=== PATIENT | male | born 1985 | race Caucasian/White ===

== ENCOUNTER 2017-07-01 02:15 | Inpatient (IN) | payer SELFPAY ==
[2017-07-01] VITALS (7 sets, daily range): BP systolic 120–140; BP diastolic 69–88; PULSE 66–90; RESP 16–22; TEMP 97.6–98.8; O2SAT 97–98
[~2017-07-01] VITALS: Ht 172.7 cm; Wt 68.0 kg
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
[2017-07-01 03:21] LABS: HEMATOCRIT 38.8 % (39.0-51.0); MEAN CELL VOLUME 87.3 FL (80.0-100.0); MEAN CORPUSCULAR HEMOGLOBIN 29.6 PG (27.0-34.0); MEAN CORPUSCULAR HGB CONC 33.9 % (32.0-36.0); PLATELET COUNT 229 TH/MM3 (150-450); RED BLOOD COUNT 4.44 MIL/MM3 (4.50-5.90); RED CELL DISTRIBUTION WIDTH 14.5 % (11.6-17.2); REVIEW FLAG FINAL; WHITE BLOOD COUNT 15.2 TH/MM3 (4.0-11.0)
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
[2017-07-01] MEDS ORDERED: ACETAMINOPHEN/HYDROcodone 325 MG/5 MG TAB PO PRN (08:45)
[2017-07-01] MEDS ORDERED: ENALAPRILAT 1.25 MG/ML VIAL IV PUSH PRN (08:45)
[2017-07-01] MEDS ORDERED: SODIUM CHLORIDE 0.9% FLUSH 10 ML FLUSH IV FLUSH PRN (08:45)
[2017-07-01] MEDS ORDERED: ONDANSETRON HCL 4 MG/2 ML VIAL IV PUSH PRN (08:45)
[2017-07-01] MEDS: DOCUSATE SODIUM 100 MG CAP PO SCH ×2 (09:00→21:33)
[2017-07-01] MEDS: MAGNESIUM HYDROXIDE SUSP 30 ML CUP PO SCH ×2 (09:00→21:34)
[2017-07-01] MEDS: PANTOPRAZOLE SODIUM 40 MG VIAL IVP SCH (09:00)
[2017-07-01] MEDS: SODIUM CHLOR 0.9% 1000 ML INJ 1,000 ML IV SCH ×2 (09:00→19:00)
[2017-07-01] MEDS ORDERED: MAGN30S PO (09:32)
[2017-07-01] MEDS ORDERED: DOCU1CAP39 PO (09:32)
[2017-07-01] MEDS: MULTIVITAMIN INJ 10 ML, THIAMINE INJ 100 MG, FOLIC ACID INJ 1 MG in SODIUM CHLORID 0.9%... IV SCH (13:11)
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
[2017-07-01] MEDS ORDERED: ceFAZolin 1,000 MG/NS 100 ML IV ONE ×2 (16:15)
[2017-07-01] MEDS ORDERED: DEXAMETHASONE SOD PHOS 4 MG/ML VIAL IV ONE (16:15)
[2017-07-01] MEDS: CHLORHEXIDINE GLUCONATE 0.12% 15 ML CUP SWISH-SPIT SCH (18:58)
[2017-07-01] MEDS ORDERED: POVIDONE IODINE 5% (ANTISEPSIS KIT) 4 APPLICATIONS EACH NARE PRN (22:00)
[2017-07-01] MEDS ORDERED: SODIUM CHLORID 0.9% 500 ML IV PRN (22:00)
[2017-07-01] MEDS ORDERED: CHLORHEXIDINE GLUCONATE 2 % 1 PACK (2 CLOTHS) TOPICAL PRN (22:00)
[2017-07-01] MEDS ORDERED: LACTATED RINGER'S 1000 ML IV PRN (22:00)
[2017-07-01] MEDS ORDERED: METOPROLOL TARTRATE 25 MG TAB PO PRN (22:00)
[2017-07-02] VITALS (7 sets, daily range): BP systolic 111–130; BP diastolic 58–83; PULSE 52–81; RESP 18–19; TEMP 95.7–98.7; O2SAT 97–100
[2017-07-02] MEDS: SODIUM CHLOR 0.9% 1000 ML INJ 1,000 ML IV SCH ×2 (00:39→15:00)
[2017-07-02 04:51] LABS: AUTOMATED NEUTROPHIL # 6.4 TH/MM3 (1.8-7.7); HEMATOCRIT 38.9 % (39.0-51.0); HEMO FLAGS DIFF FINAL; LYMPH % 13.1 % (9.0-44.0); MEAN CELL VOLUME 89.2 FL (80.0-100.0); MEAN CORPUSCULAR HEMOGLOBIN 30.3 PG (27.0-34.0); MONO % 5.6 % (0.0-8.0); NEUT % 81.3 % (16.0-70.0); PLATELET COUNT 224 TH/MM3 (150-450); RED BLOOD COUNT 4.36 MIL/MM3 (4.50-5.90); RED CELL DISTRIBUTION WIDTH 14.4 % (11.6-17.2); WHITE BLOOD COUNT 7.8 TH/MM3 (4.0-11.0)
[2017-07-02 05:15] LABS: ANION GAP 7 MEQ/L (5-15); AST (GOT) 28 U/L (15-37); BICARBONATE 24.4 MEQ/L (21.0-32.0); BLOOD UREA NITROGEN 12 MG/DL (7-18); CHLORIDE 112 MEQ/L (98-107); GLOMERULAR FILTRATION RATE 148 ML/MIN (>89); POTASSIUM 4.1 MEQ/L (3.5-5.1); SODIUM (NA) 143 MEQ/L (136-145)
[2017-07-02 05:16] LABS: ALT (GPT) 41 U/L (12-78)
[2017-07-02 05:18] LABS: ALKALINE PHOSPHATASE 73 U/L (45-117); TOTAL BILIRUBIN ADULT 0.4 MG/DL (0.2-1.0)
[2017-07-02] MEDS: DOCUSATE SODIUM 100 MG CAP PO SCH ×2 (08:43→21:00)
[2017-07-02] MEDS: CHLORHEXIDINE GLUCONATE 0.12% 15 ML CUP SWISH-SPIT SCH ×3 (08:43→17:37)
[2017-07-02] MEDS: MAGNESIUM HYDROXIDE SUSP 30 ML CUP PO SCH ×2 (08:43→21:00)
[2017-07-02] MEDS: PANTOPRAZOLE SODIUM 40 MG VIAL IVP SCH (08:43)
[2017-07-02] MEDS: MULTIVITAMIN INJ 10 ML, THIAMINE INJ 100 MG, FOLIC ACID INJ 1 MG in SODIUM CHLORID 0.9%... IV SCH (11:00)
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
[2017-07-02] MEDS: MORPHINE SULFATE 4 MG/ML INJ IV PUSH PRN (20:32)
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
[2017-07-03 00:29] VITALS: BP 129/73; PULSE 64; RESP 18; TEMP 97.4; O2SAT 98
[2017-07-03 04:47] VITALS: BP 118/71; PULSE 65; RESP 18; TEMP 97.9; O2SAT 98
[2017-07-03] MEDS: CHLORHEXIDINE GLUCONATE 0.12% 15 ML CUP SWISH-SPIT SCH ×3 (07:49→18:53)
[2017-07-03] MEDS: MAGNESIUM HYDROXIDE SUSP 30 ML CUP PO SCH ×2 (07:49→21:00)
[2017-07-03] MEDS: DOCUSATE SODIUM 100 MG CAP PO SCH ×2 (07:49→21:00)
[2017-07-03] MEDS: PANTOPRAZOLE SODIUM 40 MG VIAL IVP SCH (07:50)
[2017-07-03 08:00] VITALS: BP 111/72; PULSE 48; RESP 16; TEMP 97.6; O2SAT 98
[2017-07-03] MEDS ORDERED: DEXAMETHASONE SOD PHOS 4 MG/ML VIAL IV ONE (09:15)
[2017-07-03] MEDS: MULTIVITAMIN INJ 10 ML, THIAMINE INJ 100 MG, FOLIC ACID INJ 1 MG in SODIUM CHLORID 0.9%... IV SCH (11:00)
[2017-07-03 12:00] VITALS: BP 121/79; PULSE 65; RESP 16; TEMP 97.8; O2SAT 99
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
[2017-07-03 16:00] VITALS: BP 121/56; PULSE 79; RESP 16; TEMP 97.8; O2SAT 95
[2017-07-03] MEDS ORDERED: BACITRACIN TOP OINT 15 GM TUBE ONE (16:55)
[2017-07-03] MEDS ORDERED: LIDOCAINE 2%/EPINEPHrine PF 1:200,000 20ML SDV ONE (16:55)
[2017-07-03] MEDS ORDERED: LIDOCAINE 0.5%/EPINEPHrine 1:200,000 SOLN 50 ML VIAL ONE (16:55)
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
[2017-07-03] MEDS ORDERED: OXYMETAZOLINE HCL 0.05% 15 ML NASAL SPRAY ONE (17:53)
[2017-07-03] MEDS ORDERED: methylPREDNISolone SOD SUCC 125 MG/2 ML VIAL ONE (18:10)
[2017-07-03] MEDS ORDERED: BALANCED SALT SOLN OPHT IRRIG 15 ML BTL ONE ×2 (18:13→19:19)
[2017-07-03] MEDS ORDERED: ARTIFICIAL TEARS OPTH OINT 3.5 APPLIC/3.5 GM TUBO ONE (18:13)
[2017-07-03] MEDS ORDERED: ceFAZolin 2 GM PREMIX 50 ML IV ONE (18:57)
[2017-07-03] MEDS ORDERED: DO NOT ADM ANY ANTICOAGULANT DRUGS PRN (20:40)
--- NOTE | 2017-07-03 21:03 | HHI.PR ---
Immediate Post Op Note Procedure Date: Jul 03, 2017 Pre Op Diagnosis: lefort 2 maxillary fracture left zmc fracture left orbital floor fracture nasal bone fracture Post Op Diagnosis: sherin Surgeon: Jagdeep Cain Alumni Relations Officer(s): monserrat rubio Procedure: open reduction internal fixation of lefort 2 maxillary fracture open reduction internal fixation of left zmc fracture reconstruction of left orbital floor fracture with KLS mesh closed reduction of nasal bone fracture exam under anesthesia Complications: none Specimen(s) removed: none Estimated blood loss: 50 cc Anesthesia: General, Local (2%lidocaine with 1:200, 000 epi 7 cc) Drains: None Patient to: PACU Patient Condition: Good Date/Time of Procedure: SEE SURGICAL CARE RECORD Jagdeep Cain DMD Jul 03, 2017 21:03
[2017-07-04] MEDS: SODIUM CHLOR 0.9% 1000 ML INJ 1,000 ML IV SCH (00:09)
[2017-07-04] MEDS ORDERED: *morphine SULFATE 8 MG/ML PERIprocedure ONLY ONE (00:25)
[2017-07-04] MEDS: ceFAZolin 1,000 MG/NS 100 ML IV SCH ×6 (01:00→18:00)
[2017-07-04 01:30] VITALS: BP 159/97; PULSE 56; RESP 18; TEMP 96.6; O2SAT 99
[2017-07-04] MEDS: MORPHINE SULFATE 4 MG/ML INJ IV PUSH PRN (01:38)
[2017-07-04 04:06] VITALS: BP 121/64; PULSE 57; RESP 18; TEMP 97; O2SAT 99
[2017-07-04] MEDS: methylPREDNISolone SOD SUCC 125 MG/2 ML VIAL IV SCH ×2 (05:55)
[2017-07-04] MEDS: ACETAMINOPHEN/HYDROcodone 325 MG/7.5 MG TAB PO PRN ×3 (05:55→18:23)
[2017-07-04 08:00] VITALS: BP 117/79; PULSE 69; RESP 18; TEMP 96.5; O2SAT 98
[2017-07-04] MEDS ORDERED: methylPREDNISolone ACETATE 80 MG/ML VIAL IM ONE (08:00)
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
[2017-07-04] MEDS: CHLORHEXIDINE GLUCONATE 0.12% 15 ML CUP SWISH-SPIT SCH ×3 (10:35→18:00)
[2017-07-04] MEDS: PANTOPRAZOLE SODIUM 40 MG VIAL IVP SCH (10:35)
[2017-07-04] MEDS: MAGNESIUM HYDROXIDE SUSP 30 ML CUP PO SCH (10:35)
[2017-07-04] MEDS: DOCUSATE SODIUM 100 MG CAP PO SCH (10:36)
[2017-07-04 10:41] VITALS: O2SAT 99
[2017-07-04] MEDS ORDERED: HYDR-3516 PO (11:04)
[2017-07-04 12:00] VITALS: BP 118/63; PULSE 48; RESP 18; TEMP 96.8; O2SAT 97
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
[2017-07-04] MEDS ORDERED: CEPH-460 PO (12:28)
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
[2017-07-04 16:00] VITALS: BP 125/54; PULSE 80; RESP 18; TEMP 96.8; O2SAT 98
== END 2017-07-04 19:21 | disposition home or self-care (01) | DRG 131 ==
LOC: NEPE 02:15 → NEDA 02:57 → NEPFCDU 07:20 → OBSVTOIN 08:40 → N06B 07-02 00:50
PROVIDERS: ADMIT Surgery; ATTEND Surgery
PROC: 0NSBXZZ Reposition Nasal Bone, External Approach (ICD-10-PCS; 2017-07-03)
PROC: 0NSR04Z Reposition Maxilla with Internal Fixation Device, Open Approach (ICD-10-PCS; principal; 2017-07-03 16:30)
PROC: 0NSB04Z Reposition Nasal Bone with Internal Fixation Device, Open Approach (ICD-10-PCS; 2017-07-03 16:30)
PROC: 08U10JZ Supplement of Left Eye with Synthetic Substitute, Open Approach (ICD-10-PCS; 2017-07-03 16:30)
DX: S02.412A LeFort II fracture, initial encounter for closed fracture (principal); S02.32XA Fracture of orbital floor, left side, initial encounter for closed fracture; S06.0X9A Concussion with loss of consciousness of unspecified duration, initial encounter; F17.210 Nicotine dependence, cigarettes, uncomplicated; S02.40FA Zygomatic fracture, left side, initial encounter for closed fracture; F15.90 Other stimulant use, unspecified, uncomplicated; S02.2XXA Fracture of nasal bones, initial encounter for closed fracture; Y09 Assault by unspecified means; Y92.9 Unspecified place or not applicable; S01.511A Laceration without foreign body of lip, initial encounter
CPT/HCPCS: 76937; 80053; 85025; 85027; 94150; 99285; C9113; G8987-GP; G8988-GP; J0690; J1040; J1100; J2270; J2930; J3411; J7030; J7040; J7120